=== PATIENT | female | born 1995 | race Caucasian/White ===

== ENCOUNTER 2021-08-19 09:29 | Emergency (ER) | payer SELFPAY ==
[2021-08-19 09:30] VITALS: BP 125/84; PULSE 83; RESP 16; TEMP 37; O2SAT 99; BMI 30.2
--- NOTE | 2021-08-19 09:45 | RAD_ITS ---
STUDY: X-RAY CHEST REASON FOR EXAM: Female, 26 years old. Cough TECHNIQUE: Single AP portable view of the chest. COMPARISON: None. FINDINGS: The lungs are clear and expanded. There is no demonstrated pleural abnormality. Normal size heart. Normal mediastinum and mikie. Normal visualized pulmonary arteries. Normal visualized aortic arch and descending thoracic aorta. Normal visualized thoracic spine. Normal visualized ribs, clavicles, and shoulders. There is no demonstrated abnormality of the visualized soft tissue structures of the upper abdomen. RAD/Chest 1 View IMPRESSION: Normal x-ray examination of the chest. Electronically Signed: Andrew Barraza MD at 10:12 EDT Tel , Service support ,
--- NOTE | 2021-08-19 10:31 | EX.ED.DYSGE1 ---
HPI History of Present Illness Chief Complaint: Headache Narrative Narrative: Patient is a 26-year-old female who reports 4 to 5 days of myalgias with congestion cough and headache. She denies any known sick exposures but states she is concerned with Covid based on the symptoms. Secondary to this she presents for evaluation [facility] Medical History Asthma Home Medications hydrocodone-homatropine [Hycodan] 5 ml PO Q6H PRN 7 Days #140 ml 08/19/21 [Rx Last Taken Unknown] prednisone 40 mg PO DAILY #14 tab 08/19/21 [Rx Last Taken Unknown] Allergy/AdvReac Type Severity Reaction Status Date / Time No Known Allergies Allergy Verified 08/19/21 09:32 Social History Smoking Status: Current some day smoker tobacco type: cigarettes ROS ROS ED Constitutional Constitutional ED: Reports chills, fever(s) and subjective ENT ENT ED: Reports rhinorrhea and sore throat Cardiovascular Cardiovascular: Denies chest pain Respiratory/Chest Respiratory/Chest: Reports cough and dyspnea Gastrointestinal Gastrointestinal: Reports nausea; Denies abdominal pain, diarrhea or vomiting Genitourinary Genitourinary ED: Denies dysuria Musculoskeletal Musculoskeletal: Reports myalgias Integumentary Denies rash Neurologic Neurologic: Reports headache(s) EXAM Physical Exam Const Vital Signs: 08/19/21 09:30 Temperature 98.6 F Temperature Source Temporal Pulse Rate 83 Respiratory Rate 16 Blood Pressure 125/84 H Blood Pressure Mean 97 Pulse Ox 99 Oxygen Delivery Method Room Air Positive well nourished and well developed General Appearance ED: well developed HEENT Reports moist mucous membranes HEENT Narrative: Cobblestoning the posterior pharynx consistent with sinus drainage but no airway edema or compromise. Right TM is retracted but no secondary changes to suggest otitis media Eyes PERRL and EOMs intact bilaterally Neck supple Neck Narrative: Positive anterior and posterior cervical lymphadenopathy noted. No meningeal signs Resp normal respiratory effort Resp Narrative: Breath sounds are diminished throughout with faint expiratory wheeze but no signs of respiratory distress Cardio regular rate and regular rhythm GI normal to inspection, nondistended, normoactive bowel sounds, non-tender, non-distended and no masses Auscultation: normoactive bowel sounds Palpation: soft Extremity normal to inspection Extremity Narrative: No asymmetric edema no pitting edema negative Homans' sign bilaterally Neuro oriented x3 and CN's II-XII intact bilaterally Neuro Narrative: Cranial nerves II through XII are grossly intact there are no focal neurologic deficits. No pronator drift no dysmetria no truncal ataxia. NIH stroke scale score of 0 Sensorium / Orientation: alert Motor Exam: strength 5/5 throughout Psych mental status grossly normal Skin no rashes or lesions noted MDM MDM MDM Narrative Medical decision making narrative: Patient presented to the ER with a normal neurologic exam and stable vitals and no signs of respiratory distress. Her constellation of symptoms is consistent with a viral illness and therefore Covid swab along with chest x-ray was ordered. Chest x-ray revealed no infiltrate and Covid test was negative. On reevaluation she remained resting comfortably with normal neurologic exam and no signs of distress. Therefore patient replaced on symptomatic medications and is safe for discharge. Lab Data Attestation: I reviewed the patient's lab results. Radiography Diagnostic Testing: Clinical Impression(s) from Imaging Studies Chest X-Ray 08/19/21 09:45 IMPRESSION: Normal x-ray examination of the chest. Electronically Signed: Andrew Barraza MD at 10:12 EDT Tel , Service support , Discharge Plan Triage Chief Complaint: Headache ED Provider: Eugenio Real Dx/Rx/DC Orders Clinical Impression: Viral respiratory illness Instructions: ED URI, Viral W/ Wheezing (Adult) Prescriptions: New prednisone 20 mg tablet 40 mg PO DAILY Qty: 14 RF: 0 hydrocodone-homatropine [Hycodan] 5-1.5 mg/5 mL (5 mL) syrup 5 ml PO Q6H PRN (Reason: cough) 7 Days Qty: 140 RF: 0 Primary Care Provider: Care Physician,No Primary Referrals: Selwyn Drummond MD [STAFF PHYSICIAN] - 3-5 Days if not improving Care Physician,No Primary [Primary Care Provider] - Disposition Disposition: Home, Self Care
[2021-08-19 10:46] VITALS: BP 108/53; PULSE 71; RESP 16; O2SAT 99
== END 2021-08-19 10:46 | disposition home or self-care (01) ==
PROVIDERS: Emergency Provider Emergency Medicine
DX: B34.9 Viral infection, unspecified (principal); R51.9 Headache, unspecified; Z20.822 Contact with and (suspected) exposure to COVID-19; M79.10 Myalgia, unspecified site; J45.909 Unspecified asthma, uncomplicated; F17.210 Nicotine dependence, cigarettes, uncomplicated
CPT/HCPCS: 71045; 87426; 99282

== ENCOUNTER 2021-10-20 08:47 | Emergency (ER) | payer SELFPAY ==
[2021-10-20 08:49] VITALS: BP 120/73; PULSE 85; RESP 16; TEMP 37.1; O2SAT 99; BMI 26.7
[2021-10-20] MEDS: Ondansetron ODT 4 MG Tablet 8 MG PO (09:12)
[2021-10-20] MEDS: Mag Hydrox/Al Hydrox/Simeth 30 ML UDC PO (09:20)
[2021-10-20] MEDS: Meclizine HCl 25 MG Tablet PO (09:20)
--- NOTE | 2021-10-20 09:35 | EX.ED.DYSGE1 ---
HPI History of Present Illness Chief Complaint: Dizziness Informant: patient Narrative Narrative: Healthy unvaccinated 26-year-old female presenting with cold symptoms for the past 2 or 3 days, and yesterday and this morning she has developed vertigo that feels like spinning, makes her nauseated, worse when she turns her head to the right, intermittent and goes away when she remains still. No headache. No earache, tinnitus, changes in her hearing, or ear pain. PFSH PFSH Medical History Asthma Home Medications meclizine 25 mg PO Q8H PRN PRN #20 tab 10/20/21 [Rx Last Taken Unknown] Allergy/AdvReac Type Severity Reaction Status Date / Time promethazine [From Phenergan] AdvReac NEEDS Verified 10/20/21 08:48 FOLLOW-UP Social History Smoking Status: Current some day smoker tobacco type: cigarettes ROS ROS ED Constitutional Constitutional ED: Denies chills or fever(s) ENT ENT ED: Reports nasal congestion, rhinorrhea and sore throat; Denies ear pain Cardiovascular Cardiovascular: Reports chest pain and other Details: Nonpleuritic upper substernal chest burning that started after nausea/vomiting this morning ; Denies palpitations Respiratory/Chest Respiratory/Chest: Denies dyspnea Gastrointestinal Gastrointestinal: Reports nausea and vomiting; Denies abdominal pain or diarrhea Genitourinary Genitourinary ED: Denies dysuria or hematuria Musculoskeletal Musculoskeletal: Denies myalgias or neck pain Integumentary Denies abscess or rash Neurologic Neurologic: Reports vertigo; Denies headache(s), paresthesias or weakness Psychiatric Psychiatric: Denies depression or suicidal thoughts Endocrine Endocrinology: Denies polydipsia or polyuria EXAM Physical Exam Const Vital Signs: 10/20/21 08:49 10/20/21 09:16 Temperature 98.7 F Temperature Source Temporal Pulse Rate 85 Respiratory Rate 16 Respiratory Effort Normal Non-Labored Respiratory Pattern Normal Blood Pressure 120/73 Blood Pressure Mean 88 Pulse Ox 99 Oxygen Delivery Method Room Air Positive well nourished and well developed General Appearance ED: well developed and NAD HEENT Reports EAC's normal, TM's clear, TM's normal bilaterally and moist mucous membranes normocephalic and atraumatic Tympanic Membrane ED: Yes TM's clear Throat: Negative for posterior oropharynx abnormal Eyes PERRL and EOMs intact bilaterally Neck no lymphadenopathy, supple and no meningeal signs Resp normal respiratory effort and clear to auscultation bilaterally Cardio no murmurs Rate: regular rate Rhythm: regular rhythm Neuro oriented x3, CN's II-XII intact bilaterally and no sensory deficits noted Neuro Narrative: Normal [id number] and [id number] bilaterally Sensorium / Orientation: alert Motor Exam: strength 5/5 throughout Skin Lesions: no lesions Rashes: no rashes MDM MDM MDM Narrative Medical decision making narrative: Rapid Covid is negative. She likely has peripheral vertigo from her right ear due to viral labyrinthitis. Supportive care advised follow-up if not improving or getting worse. Discharge Plan Triage Chief Complaint: Dizziness ED Provider: Michael Jacome Dx/Rx/DC Orders Clinical Impression: Peripheral vertigo involving right ear, Viral URI Instructions: ED Vertigo, Unspecified Prescriptions: New meclizine [meclizine] 25 MG tablet 25 mg PO Q8H PRN PRN (Reason: Dizziness) Qty: 20 RF: 0 Primary Care Provider: Care Physician,No Primary Referrals: Vanessa Washington [NON-STAFF] - 1 Week if not improving Care Physician,No Primary [Primary Care Provider] - Disposition Disposition: Home, Self Care
--- NOTE | 2021-10-20 11:36 | CM.ED ---
SW Note Referral Source: Case Find Referral Reason: NO PCP SW met with patient and she confirmed she has no PCP. Patient was provided with Healthcare Provider Directory from [facility]. No other SW needs voiced at this time. Plan: Provided with PCP resources Joyce LEON
[2021-10-20 11:54] VITALS: BP 124/67; PULSE 71; RESP 16; O2SAT 98
== END 2021-10-20 11:55 | disposition home or self-care (01) ==
PROVIDERS: Emergency Provider Emergency Medicine; Visit Provider Emergency Medicine
DX: H81.391 Other peripheral vertigo, right ear (principal); J06.9 Acute upper respiratory infection, unspecified; F17.210 Nicotine dependence, cigarettes, uncomplicated
CPT/HCPCS: 87426; 99283

== ENCOUNTER 2021-12-07 09:38 | Emergency (ER) | payer SELFPAY ==
[2021-12-07 09:39] VITALS: BP 111/70; PULSE 84; RESP 17; TEMP 36.8; O2SAT 96; BMI 25.9
[2021-12-07] MEDS: Ondansetron 4 MG/2 ML Vial IV (10:39)
[2021-12-07] MEDS: Morphine 4 MG/ML Syringe IV ×2 (10:39→11:47)
[2021-12-07] MEDS: 0.9% Normal Saline 1,000 ML 1000 ML IV (10:39)
[2021-12-07 10:50] LABS: Bacteria 0 SEEN /hpf (None Seen); Mucous, Urine 0 SEEN /hpf (<or=2+); Red Blood Cells-Urine 0 SEEN /hpf (0-5); White Blood Cells 0 SEEN /hpf (0-5)
[2021-12-07 10:51] LABS: Color, Urine Yellow (Yellow); Glucose, Dipstick Normal (Normal); Ketone-Dipstick Negative (Negative); Leukocyte Esterase-Dipstick Negative /ul (Negative); Nitrite-Dipstick Negative (Negative); Occult Blood-Urine Negative /ul (Negative); Protein-Dipstick Negative (Negative); Urine Bilirubin Dipstick Negative (Negative); Urine Clarity Clear (Clear); Urine Urobilinogen Normal (Normal)
[2021-12-07 10:52] LABS: Absolute Lymphocyte Count 1.85 X10^3/uL (0.83-4.51); Absolute Neutrophil Count 2.9 X10^3/uL (2.0-7.7); Basophil# 0.04 X10^3/uL; Basophil% 0.8 % (0-1); Eosinophil# 0.08 X10^3/uL; Eosinophils% 1.5 % (0-5); Hematocrit 35.7 % (37-47); Hemoglobin 11.6 g/dL (12.0-15.0); Lymphocyte # 1.85 X10^3/ul (0.83-4.51); Lymphocyte % 35.6 % (19-41); Mean Corp Hgb Conc 32.5 g/dL (32-36); Mean Corpuscular Hgb 26.2 pg (27.0-32.0); Mean Corpuscular Volume 80.6 fL (81-99); Mean Platelet Vol. 9.3 fl (6.2-12.0); Monocyte# 0.32 X10^3/uL; Monocyte% 6.2 % (0-10); NRBC Flagged by Analyzer 0 % (0-5); Neutrophil # 2.89 X10^3/uL (2.7-7.7); Neutrophil % 55.7 % (47-70); Platelet Count 302 K/mm3 (150-450); RBC Distribution Width CV 15.1 % (11.6-14.6); RBC Distribution Width SD 44.3 fl (35.1-43.9); Red Blood Count 4.43 M/mm3 (4.2-5.4); White Blood Count 5.2 K/mm3 (4.4-11.0)
--- NOTE | 2021-12-07 10:56 | CT_ITS ---
STUDY: CT ABDOMEN AND PELVIS WITH CONTRAST REASON FOR EXAM: Female, 26 years old. LUQ pain. 3 day history of nausea and vomiting. Patient has a pectus carinatum. RADIATION DOSAGE (If Supplied By Facility): CTDIvol = ( 10.79 ) mGy, DLP = ( 394.07 ) mGycm TECHNIQUE: Transaxial images were obtained from the dome of the diaphragm to the symphysis pubis without oral contrast. IV 100mL Isovue-300 was administered. Sagittal and coronal images were reconstructed. Individualized dose optimization techniques were used for this CT. COMPARISON: None. FINDINGS: The visualized lung bases are unremarkable. The visualized portions of the heart are within normal limits. 5 mm cyst in the dome of the right lobe of the liver. Normal gallbladder and extrahepatic biliary system. Normal spleen. Normal pancreas. Normal bilateral adrenal glands. Normal right kidney. Normal left kidney. Normal visualized stomach. Normal small intestine. Normal colon. The appendix is visualized and appears normal. Normal abdominal aorta. Normal inferior vena cava. Normal retroperitoneum. Distended urinary bladder. Tubal ligation clips are seen in the pelvis. Small amount of free fluid in the cul-de-sac. There is a 1.5 cm x 1.2 cm dominant follicle in the left ovary. Normal abdominal wall. Normal osseous structures. CT/Abdomen/Pelvis W IV Cont ONLY IMPRESSION: Small amount of free fluid is seen in the cul-de-sac. Dominant follicle seen in the left ovary. Tubal ligation clips are seen in the pelvis. Electronically Signed: Ayush Cazares MD at 12:59 EST ,
--- NOTE | 2021-12-07 11:00 | EDS_ITS ---
HPI HPI - GI History of Present Illness Chief Complaint: Abd Pain Narrative Narrative: 26-year-old female presenting with left upper quadrant pain. She states that has had this for a few days. He states that it is sharp and sometimes radiates posteriorly to the left flank. She does have history of kidney stones but states this felt different. She has not had any urinary complaints. She admits to nausea without vomiting and episodes of bloating and diarrhea. She denies black or bloody stools. She is not had fever or chills. She is not anything atypical for herself. She is not had any travel. She has no history of Crohn's disease or ulcerative colitis. She is not concerned for . [facility] Medical History Asthma Home Medications NK 12/07/21 [History Last Taken Unknown] Allergy/AdvReac Type Severity Reaction Status Date / Time promethazine [From Phenergan] AdvReac NEEDS Verified 12/07/21 09:38 FOLLOW-UP Surgical History History of 2 sections Social History Smoking Status: Current some day smoker tobacco type: cigarettes ROS ROS ED Constitutional Constitutional ED: Denies chills or fever(s) ENT ENT ED: Denies rhinorrhea or sore throat Cardiovascular Cardiovascular: Denies chest pain or palpitations Respiratory/Chest Respiratory/Chest: Denies cough or dyspnea Gastrointestinal Gastrointestinal: Reports abdominal pain, nausea and vomiting Genitourinary Genitourinary ED: Denies dysuria or hematuria Musculoskeletal Musculoskeletal: Denies arthralgias or myalgias Integumentary Denies abscess or rash Neurologic Neurologic: Denies headache(s) or weakness EXAM Physical Exam Const Vital Signs: 12/07/21 09:39 12/07/21 11:55 Temperature 98.2 F Temperature Source Temporal Pulse Rate 84 61 Respiratory Rate 17 14 Blood Pressure 111/70 103/75 Blood Pressure Mean 83 84 Pulse Ox 96 100 Oxygen Delivery Method Room Air Room Air Positive well nourished General Appearance ED: NAD; Negative for pallor HEENT Reports moist mucous membranes normocephalic and atraumatic Eyes PERRL and EOMs intact bilaterally Neck no lymphadenopathy and supple Resp normal respiratory effort and clear to auscultation bilaterally Cardio regular rate and regular rhythm GI Palpation: soft and tender LUQ Back/Spine General Back: CVA tenderness right Neuro Sensorium / Orientation: alert, oriented to person, oriented to place and oriented to time Psych mental status grossly normal and thought process normal Skin General Skin Exam: Negative for jaundice or pallor MDM MDM MDM Narrative Medical decision making narrative: 26-year-old female presenting with left upper quadrant abdominal pain. She states he has nausea without vomiting. She does express that she has had some gas and bloating with diarrhea. She does appear to have some CVA tenderness on the left as well. I did check a urinalysis there is no evidence of occult blood or caity hematuria. There is no evidence of infection. CBC shows no leukocytosis and her hemoglobin is stable at 11.6. Platelets are normal at 302. Renal function and electrolytes are normal. LFTs are normal. Lipase is negative. Patient continued to have pain after initially getting 4 mg of morphine and she was given a repeat dose. CT of the abdomen pelvis with IV contrast shows a dominant follicle on the left ovary. There are some fluid in the cul-de-sac. I interpreted this to likely be a ruptured ovarian cyst. I do not believe she has an ultrasound. Patient was given prescription for Naprosyn and Zofran for home. She is given return precautions. Impression: 1. Ruptured ovarian cyst Lab Data Attestation: I reviewed the patient's lab results. Labs: Laboratory Results - last 24 hr 12/07/21 12/07/21 12/07/21 09:48 09:48 09:48 WBC 5.2 RBC 4.43 Hgb 11.6 L Hct 35.7 L MCV 80.6 L MCH 26.2 L MCHC 32.5 RDW Std Deviation 44.3 H RDW Coeff of [place] 15.1 H Plt Count 302 MPV 9.3 Immature Gran % (Auto) 0.200 Neut % (Auto) 55.7 Lymph % (Auto) 35.6 [place] % (Auto) 6.2 Eos % (Auto) 1.5 Baso % (Auto) 0.8 Absolute Neuts (auto) 2.9 Absolute Lymphs (auto) 1.85 Nucleated RBC % 0 Sodium 136 Potassium 4.1 Chloride 105 Carbon Dioxide 28.0 Anion Gap 3 L BUN 9 Creatinine 0.84 Estim Creat Clear Calc 72.26 Est GFR (MDRD) Af Amer 104 Est GFR (MDRD) Non-Af 86 BUN/Creatinine Ratio 10.7 Glucose 82 Calcium 8.9 Total Bilirubin 0.60 AST 17 ALT 17 Alkaline Phosphatase 41 L Total Protein 8.0 Albumin 3.9 Globulin 4.1 Albumin/Globulin Ratio 1.0 Lipase 117 Serum , Qual NEGATIVE Urine Color Urine Clarity Urine pH Ur Specific [place] Urine Protein Urine Glucose (UA) Urine Ketones Urine Occult Blood Urine Nitrite Urine Bilirubin Urine Urobilinogen Ur Leukocyte Esterase Urine RBC Urine WBC Ur Squamous Epith Cells Urine Bacteria Urine Mucus 12/07/21 10:35 WBC RBC Hgb Hct MCV MCH MCHC RDW Std Deviation RDW Coeff of [place] Plt Count MPV Immature Gran % (Auto) Neut % (Auto) Lymph % (Auto) [place] % (Auto) Eos % (Auto) Baso % (Auto) Absolute Neuts (auto) Absolute Lymphs (auto) Nucleated RBC % Sodium Potassium Chloride Carbon Dioxide Anion Gap BUN Creatinine Estim Creat Clear Calc Est GFR (MDRD) Af Amer Est GFR (MDRD) Non-Af BUN/Creatinine Ratio Glucose Calcium Total Bilirubin AST ALT Alkaline Phosphatase Total Protein Albumin Globulin Albumin/Globulin Ratio Lipase Serum , Qual Urine Color Yellow Urine Clarity Clear Urine pH 7.0 Ur Specific [place] 1.010 Urine Protein Negative Urine Glucose (UA) Normal Urine Ketones Negative Urine Occult Blood Negative Urine Nitrite Negative Urine Bilirubin Negative Urine Urobilinogen Normal Ur Leukocyte Esterase Negative Urine RBC 0 SEEN Urine WBC 0 SEEN Ur Squamous Epith Cells 0-5 SEEN Urine Bacteria 0 SEEN Urine Mucus 0 SEEN Radiography Diagnostic Testing: Clinical Impression(s) from Imaging Studies Abdomen/Pelvis CT 12/07/21 10:56 IMPRESSION: Small amount of free fluid is seen in the cul-de-sac. Dominant follicle seen in the left ovary. Tubal ligation clips are seen in the pelvis. Electronically Signed: Ayush Cazares MD at 12:59 EST , Discharge Plan Triage Chief Complaint: Abd Pain ED Provider: Sebastian Medeiros Dx/Rx/DC Orders Instructions: Treating a Ruptured Ovarian Cyst Prescriptions: No Action NK RF: 0 Primary Care Provider: Care Physician,No Primary Referrals: Care Physician,No Primary [Primary Care Provider] - Disposition Disposition: Home, Self Care
[2021-12-07 11:01] LABS: Squamous Epithelial Cells - UA 0-5 SEEN /hpf (5-10)
[2021-12-07 11:02] LABS: Internal QC Validated? YES +Cl - CLEAR BKGD; Pregnancy, Serum, hCG Quali. NEGATIVE Negative
[2021-12-07 11:19] LABS: AST(SGOT) 17 U/L (15-37); Alanine Aminotransfer ALT/SGPT 17 U/L (13-56); Albumin, Serum 3.9 g/dL (3.2-5.0); Alkaline Phosphatase 41 U/L (45-117); Anion Gap 3 (5-15); BUN 9 mg/dL (7-18); BUN/Creat Ratio 10.7 RATIO (10-20); Calcium,Total 8.9 mg/dL (8.5-10.1); Chloride 105 mmol/L (98-107); Creatinine, Serum 0.84 mg/dL (0.55-1.02); EST Glomerular Filtration Rate 86 mL/min (>60); Est Glom Filt Rate - Afr Amer 104 mL/min (>60); Estimated Creatinine Clearance 72.26 ml/min; Globulin 4.1 g/dL (2.2-4.2); Glucose 82 mg/dL (74-106); Lipase 117 U/L (73-393); Potassium 4.1 mmol/L (3.5-5.1); Sodium Level 136 mmol/L (136-145)
[2021-12-07 11:55] VITALS: BP 103/75; PULSE 61; RESP 14; O2SAT 100
== END 2021-12-07 13:35 | disposition home or self-care (01) ==
PROVIDERS: Emergency Provider Student in an Organized Health Care Education/Training Program; Visit Provider Student in an Organized Health Care Education/Training Program
DX: N83.202 Unspecified ovarian cyst, left side (principal); R10.12 Left upper quadrant pain; R11.0 Nausea; J45.909 Unspecified asthma, uncomplicated; F17.210 Nicotine dependence, cigarettes, uncomplicated; Z87.442 Personal history of urinary calculi
CPT/HCPCS: 74177; 80053; 81001; 83690; 84703; 85025; 96361; 96374; 96375; 96376; 99283; J7030; Q9967; A4216; J2405

== ENCOUNTER 2022-01-13 09:58 | Emergency (ER) | payer SELFPAY ==
[2022-01-13 09:59] VITALS: BP 104/68; PULSE 87; RESP 17; TEMP 36.1; O2SAT 97; BMI 25.9
--- NOTE | 2022-01-13 10:25 | EX.ED.DYSGE1 ---
HPI History of Present Illness Chief Complaint: Headache Informant: patient Narrative Narrative: 26-year-old female presenting with headache. She states she has a gradual onset headache which started yesterday. She has tried Excedrin Migraine at home. She complains of nausea and vomiting. Denies fever. Complains of diffuse headache. Denies neck pain. Denies trauma. Prior similar symptoms: Yes Recent Illness/Hospitalization: No PFSH PFSH Medical History Asthma Home Medications NK 01/13/22 [History Last Taken Unknown] Allergy/AdvReac Type Severity Reaction Status Date / Time promethazine [From Phenergan] AdvReac NEEDS Verified 01/13/22 09:59 FOLLOW-UP Surgical History History of 2 sections Social History Smoking Status: Current some day smoker tobacco type: cigarettes ROS ROS ED Constitutional Constitutional ED: Denies fever(s) Eyes Eyes: Denies change in vision ENT ENT ED: Denies rhinorrhea or sore throat Cardiovascular Cardiovascular: Denies chest pain or palpitations Respiratory/Chest Respiratory/Chest: Denies cough or dyspnea Gastrointestinal Gastrointestinal: Denies abdominal pain, diarrhea, nausea or vomiting Genitourinary Genitourinary ED: Denies dysuria Musculoskeletal Musculoskeletal: Denies myalgias Integumentary Denies rash Neurologic Neurologic: Reports headache(s) Psychiatric Psychiatric: Denies suicidal thoughts EXAM Physical Exam Const Vital Signs: 01/13/22 09:59 Temperature 97.0 F L Temperature Source Temporal Pulse Rate 87 Respiratory Rate 17 Blood Pressure 104/68 Blood Pressure Mean 80 Pulse Ox 97 Oxygen Delivery Method Room Air Positive well nourished and well developed General Appearance ED: well developed HEENT Reports normocephalic and head/scalp atraumatic Eyes PERRL and EOMs intact bilaterally Neck supple Neck Narrative: No meningismus General: Negative for tenderness Chest Wall inspection of chest normal Resp normal respiratory effort and clear to auscultation bilaterally Cardio regular rate and regular rhythm GI non-tender and non-distended Palpation: soft; Negative for guarding or rebound tenderness present no CVA tenderness Extremity normal to inspection Neuro oriented x3 Sensorium / Orientation: alert Psych mental status grossly normal MDM MDM MDM Narrative Medical decision making narrative: Patient was given Reglan, Benadryl, IV fluids with some improvement. She was given Toradol IV with additional improvement. She feels comfortable with discharge home. Advised to follow-up with primary care physician. Advised return to ED for worsening complaints. Discharge Plan Triage Chief Complaint: Headache ED Provider: Nelia Sood Dx/Rx/DC Orders Clinical Impression: Headache Instructions: ED Headache Unspecified Prescriptions: No Action NK RF: 0 Primary Care Provider: Care Physician,No Primary Referrals: Bassem Motley MD [NON-STAFF] - Care Physician,No Primary [Primary Care Provider] - Disposition Disposition: Home, Self Care
[2022-01-13] MEDS: 0.9% Normal Saline 1,000 ML 999 ML IV (10:49)
[2022-01-13] MEDS: Metoclopramide 10 MG/2 ML Vial 5 MG IV (10:49)
[2022-01-13] MEDS: DiphenhydrAMINE 50 MG/ML Syringe 25 MG IV (10:50)
[2022-01-13] MEDS: Ketorolac 30 MG/ML Syringe IV (12:29)
[2022-01-13 12:59] VITALS: BP 108/64; PULSE 72; RESP 16; O2SAT 99
== END 2022-01-13 13:00 | disposition home or self-care (01) ==
PROVIDERS: Emergency Provider Emergency Medicine; Visit Provider Emergency Medicine
DX: R51.9 Headache, unspecified (principal); R11.2 Nausea with vomiting, unspecified; F17.210 Nicotine dependence, cigarettes, uncomplicated
CPT/HCPCS: 96361; 96374; 96375; 99283; J7030

== ENCOUNTER 2022-08-28 10:57 | Emergency (ER) | payer SELFPAY ==
[2022-08-28 10:57] VITALS: BP 129/76; PULSE 100; RESP 16; TEMP 37.6; O2SAT 100; BMI 27.3
--- NOTE | 2022-08-28 11:34 | EX.ED.DYSGE1 ---
HPI History of Present Illness Chief Complaint: Nausea/Vomiting Informant: patient Onset/Context/Timing Onset: Yesterday Context: Gradual Onset Timing: Continuous Quality: Aching Location: Generalized Worsened by: Nothing Relieved by: Nothing Narrative Narrative: Patient presents with nausea, vomiting, and generalized aches that began yesterday. Patient states it is getting progressively worse. Patient states nothing makes it better nothing makes it worse. Patient admits to subjective fevers at home but did not take her temperature. Patient admits to a sore throat and rhinorrhea. Patient admits to a mild cough. Patient admits to some nausea and vomiting. Patient admits to a headache. [facility] Medical History Asthma Home Medications NK 01/13/22 [History Last Taken Unknown] Allergy/AdvReac Type Severity Reaction Status Date / Time promethazine [From Phenergan] AdvReac NEEDS Verified 08/28/22 11:00 FOLLOW-UP Surgical History History of 2 sections Social History Smoking Status: Current some day smoker tobacco type: cigarettes ROS ROS ED Constitutional Constitutional ED: Reports fever(s) and subjective; Denies chills Eyes Eyes: Denies blurry vision or change in vision ENT ENT ED: Reports rhinorrhea and sore throat Cardiovascular Cardiovascular: Denies chest pain or palpitations Respiratory/Chest Respiratory/Chest: Reports cough; Denies dyspnea Gastrointestinal Gastrointestinal: Reports nausea and vomiting Genitourinary Genitourinary ED: Denies dysuria or hematuria Musculoskeletal Musculoskeletal: Reports back pain and myalgias Integumentary Denies abscess or rash Neurologic Neurologic: Reports headache(s); Denies weakness Allergic/Immunologic Allergic/Immunologic ED: Denies mouth swelling or urticaria EXAM Physical Exam Const Vital Signs: 08/28/22 10:57 Temperature 99.7 F H Temperature Source Temporal Pulse Rate 100 Respiratory Rate 16 Blood Pressure 129/76 H Blood Pressure Mean 93 Pulse Ox 100 Oxygen Delivery Method Room Air Positive well nourished and well developed General Appearance ED: well developed HEENT Reports moist mucous membranes HEENT Narrative: Oropharynx showed some mild postnasal drainage. There is mild erythema. There are no exudates. Eyes PERRL and EOMs intact bilaterally Neck supple and no JVD Resp normal respiratory effort and clear to auscultation bilaterally Cardio regular rate, regular rhythm and no murmurs GI normal to inspection, nondistended, normoactive bowel sounds and non-tender Palpation: soft Extremity normal to inspection General Extremety ED: Negative for edema or tenderness General Extremity: Negative for edema Neuro oriented x3, CN's II-XII intact bilaterally and no sensory deficits noted Sensorium / Orientation: alert Motor Exam: strength 5/5 throughout Psych mental status grossly normal Skin no rashes or lesions noted MDM MDM MDM Narrative Medical decision making narrative: Patient was given IV fluids, Zofran, and Tylenol. PA and lateral chest x-ray was obtained. There are 2 views. On my interpretation, lung fernandez are clear. There is normal cardiac silhouette. Bony thorax is normal. There is no acute process noted. Radiologist also interpreted the x-ray and agrees. COVID-19 rapid antigen was obtained and was positive. Influenza A and influenza B antigens were obtained and were negative. Patient was advised of her findings. Patient was instructed to take Tylenol or ibuprofen as needed for any aches or fevers. Patient was instructed drink plenty of fluids. Patient was instructed to quarantine for the next 5 days. Patient was instructed to follow-up with her primary care physician in 5 to 7 days. Patient understood and was agreeable with the plan. All questions were answered. Radiography Diagnostic Testing: Clinical Impression(s) from Imaging Studies Chest X-Ray 08/28/22 12:10 IMPRESSION: No acute cardiopulmonary process identified. Electronically Signed: Charity Reynolds MD at 12:18 EST , Discharge Plan Triage Chief Complaint: Nausea/Vomiting ED Provider: Garfield Barksdale Dx/Rx/DC Orders Clinical Impression: COVID-19 Instructions: Coronavirus Disease 2019 (COVID-19): Overview Prescriptions: No Action NK Stand Alone Forms: ED Work / School Excuse Primary Care Provider: Care Physician,No Primary Referrals: Vanessa Washington [Non-Staff] - 5-7 Days Care Physician,No Primary [Primary Care Provider] - Disposition Disposition: Home, Self Care
[2022-08-28] MEDS: 0.9% Normal Saline 1,000 ML 1000 ML IV (11:53)
[2022-08-28] MEDS: Ondansetron 4 MG/2 ML Vial IV ×2 (12:07→13:01)
--- NOTE | 2022-08-28 12:10 | RAD_ITS ---
HISTORY: Cough. TECHNIQUE: XR Chest 2 Views. COMPARISON: 08/19/2021. FINDINGS: CARDIOMEDIASTINAL BORDERS: Cardiac silhouette within normal limits in size. Mediastinal contour unremarkable. LUNGS: Radiographically clear. PLEURA: No pleural effusion or pneumothorax seen. OSSEOUS STRUCTURES: Unremarkable. RAD/Chest PA and Lateral IMPRESSION: No acute cardiopulmonary process identified. Electronically Signed: Charity Reynolds MD at 12:18 EST ,
[2022-08-28] MEDS: Acetaminophen 500 MG Tablet 1000 MG PO (12:21)
== END 2022-08-28 13:37 | disposition home or self-care (01) ==
PROVIDERS: Emergency Provider Emergency Medicine; Visit Provider Emergency Medicine
DX: U07.1 COVID-19 (principal); R11.2 Nausea with vomiting, unspecified; F17.210 Nicotine dependence, cigarettes, uncomplicated
CPT/HCPCS: 71046; 87428; 96361; 96374; 96376; 99284; J7030; J2405

== ENCOUNTER 2023-03-22 09:17 | Emergency (ER) | payer SELFPAY ==
[2023-03-22 09:17] VITALS: BP 99/71; PULSE 87; RESP 18; TEMP 36; O2SAT 100; BMI 26.4
--- NOTE | 2023-03-22 09:23 | EX.ED.DYSGE1 ---
HPI History of Present Illness Chief Complaint: Flank Pain [facility] Medical History Asthma Home Medications NK 01/13/22 [History Last Taken Unknown] Allergy/AdvReac Type Severity Reaction Status Date / Time promethazine [From Phenergan] AdvReac NEEDS Verified 03/22/23 09:17 FOLLOW-UP Surgical History History of 2 sections Social History Smoking Status: Current some day smoker tobacco type: cigarettes EXAM Physical Exam Const Vital Signs: 03/22/23 09:17 Temperature 96.8 F L Temperature Source Temporal Pulse Rate 87 Respiratory Rate 18 Blood Pressure 99/71 Blood Pressure Mean 80 Pulse Ox 100 Oxygen Delivery Method Room Air MDM MDM MDM Narrative Medical decision making narrative: HISTORY OF PRESENT ILLNESS: 27-year-old female here with flank pain. The patient states she developed left-sided flank pain that is sharp worse with a deep breath 2 days ago. She denies any falls or trauma states she was out walking at [place] and did not notice any specific injury. She states the pain does not radiate to her groin it is not associated with urination or fever. She states that history of kidney stones and this does not feel like her prior kidney stone. She denies any cough fever. She denies any chest pain or shortness of breath. She states when she takes a deep breath it feels heavy in her left flank area low back area. Patient denies any saddle anesthesia, urinary tension, bowel or bladder incontinence, lower extremity weakness, fever or IV drug use, no recent spinal manipulation or surgery, no recent urinary catheterization. The patient denies recent surgery in the last 4 weeks or immobilization in the last 3 days, denies previous diagnosis of DVT or PE, hemoptysis, unilateral leg swelling or malignancy with treatment the last 6 months. No estrogen use noted. She denies any bleeding diathesis. Denies any volume loss such as vomiting or diarrhea. She denies any frequency urgency or changes to her urinary habits. REVIEW OF SYSTEMS: Pertinent positives: Flank pain, nausea Pertinent negatives: Syncope, chest pain, loss of sensation, loss of PHYSICAL EXAM: Nursing triage notes reviewed, Vital signs reviewed Constitutional: please see mdm HENT: MMM Eyes: Pupils equal round and reactive to light, Extraocular muscles intact Neck: No stridor, no JVD, full neck ROM Lungs: Clear to auscultation, No wheezing or rales. No increased work of breathing, no conversational dyspnea, no accessory muscle use, no nasal flaring. No respiratory distress noted Heart: Regular rate and rhythm, No murmurs, No rubs and No gallops, 2+ distal pulses (radial, femoral, posterior tibial) in all extremities Abdomen: Soft, there is no tenderness, rigidity, rebound or guarding, no obvious peritoneal signs, no palpable pulsatile abdominal masses, no auscultated abdominal bruit : No CVAT Back: Hypertonicity, TTP over left lateral lumbar paraspinal muscles. No step-offs or deformities noted to T or L-spine. Extremities: No edema, no calf tenderness no stigmata of VTE Neuro: No focal neurological deficits, cranial nerves II through XII intact, 5/5 strength in all extremities. Intact sensation to light touch in all extremities, 2+ reflexes bilateral patella tendons. Normal gait. No ataxia. Intact sensation L1-S1 dermatomal distributions. Intact 5/5 strength in hip flexion (T12-L3). Knee extension (L2-L4). Ankle dorsiflexion (L4-L5). Ankle plantar flexion (S1). Great toe extension (L5). 2+ patellar and Achilles DTRs. Skin: No rash or lesions noted MEDICAL DECISION MAKING: Chief Complaint: Flank pain, nausea External records reviewed: CT scan of the abdomen pelvis was obtained in November 2021 for left lower quadrant abdominal pain nausea and vomiting. CT scan at that time showed no evidence of kidney stones or other acute intra-abdominal pathology Factors affecting care: History of 2 section, asthma Social determinants of health:Current smoker History obtained from others: None Consults: None ALL IMAGES HAVE BEEN PERSONALLY REVIEWED AND INTERPRETED BY MYSELF. [facility] Narrative: Patient was hemodynamically stable, afebrile, nontoxic-appearing. She had soft systolic blood pressure however prior blood pressure studies show her blood pressure typically runs in the low 100s for example blood pressure from May 19, 2016 was 104/62. I considered the following differential diagnosis: Nephrolithiasis, pyelonephritis, , UTI, musculoskeletal pain, pneumonia, PE I considered PE given exacerbation of symptoms with a deep breath however the patient is PERC negative, has a low risk Wells score and as such have a low suspicion for VTE at this time. She had no chest pain or shortness of breath to suggest ACS. Pain did not radiate to the groin she had no urinary complaints to suggest nephrolithiasis or pyelonephritis. She had no cough fever hypoxia to suggest pneumonia. There is no indication for advanced imaging of the chest or abdomen or pelvis at this time. I was more concerned by musculoskeletal back pain. The patient had no back pain red flags to suggest a space-occupying lesion in the spine or cauda equina. She had no trauma to suggest fracture dislocation. The patient symptomatic treatment here. I obtained a urine and urinalysis to rule out and UTI. Urine will also be helpful and determine the patient has any evidence of inflammation or hematuria that suggest nephrolithiasis. UA was remarkable for no evidence of hematuria or UTI. Patient is likely suffering from musculoskeletal back pain and as such she is appropriate discharge home with outpatient pain control instructions and PCP follow-up. The patient presented complaining of back pain. There was no history of recent fall or trauma. There was no evidence to support genitourinary etiology. There is also no evidence to suggest vascular pathology such as AAA dissection. No fevers or other evidence to suspect infectious processes, abscess, osteomyelitis etc. The patient?s neurological exam is normal with normal motor and sensory. There is no saddle paresthesias reported and no bowel or bladder incontinence or retention. I suspect the pain is mechanical in nature. Clinical suspicion, plan of care and management was discussed with the patient. The patient was instructed to follow up with their health care provider. The patient was also instructed to return if the pain worsened, changed, or developed weakness or bowel or bladder trouble. The patient agreed with plan. I completed a structured, evidence-based clinical evaluation to screen for acute non-traumatic spinal emergencies. The patient has a normal detailed neurologic exam and red flag historical factors were negative. The evidence indicates that the patient is very low risk for an acute spinal emergency and this is consistent with my clinical intuition. The risk of further workup is higher than the likelihood of the patient having a spinal epidural abscess or other dangerous emergency spinal condition. It is, therefore, in the patient?s best interest not to do additional emergent testing at this time. Shared Decision-Making I have discussed with the patient my clinical impression and the result of an evidence-based clinical evaluation to screen for spinal epidural abscess and other spinal emergencies, as well as the risk of further testing and hospitalization. The evidence shows that the risk for an acute spinal emergency is less than 1%. Although the risk of an acute spinal emergency has not been completely eliminated, the risks of further testing likely exceed any potential benefit, and the patient agrees with not pursuing further emergent evaluation for causes of back pain at this time. The patient and/or family, caregivers express understanding. The patient and/or family, caregivers agrees with the plan. Total critical care time today provided was at least 0 minutes. This excludes separately billable procedures. Critical care time if documented is secondary to the patient having high probability of clinically significant/life threatening deterioration in the patient's condition which required my urgent intervention. Lab Data Labs: Laboratory Results - last 24 hr 03/22/23 09:40 Urine Color Yellow Urine Clarity Sl. Cloudy Urine pH 8.0 Ur Specific [place] 1.015 Urine Protein Negative Urine Glucose (UA) Normal Urine Ketones Negative Urine Occult Blood 10 H Urine Nitrite Negative Urine Bilirubin Negative Urine Urobilinogen Normal Ur Leukocyte Esterase Negative Urine RBC 0-5 SEEN Urine WBC 0 SEEN Ur Squamous Epith Cells 0-5 SEEN Urine Bacteria 1+ Urine Mucus 0 SEEN Urine Test Negative Discharge Plan Triage Chief Complaint: Flank Pain ED Provider: Kevin Turner Dx/Rx/DC Orders Clinical Impression: Musculoskeletal back pain Instructions: ED Back Pain (Acute or Chronic) Prescriptions: No Action NK Stand Alone Forms: ED Work / School Excuse Primary Care Provider: Care Physician,No Primary Referrals: Sulma Yee MD [Med Staff - Nursing Center Tutor] - Activity Restrictions/Additional Instructions: Thank you for trusting us with your care today! Please take Tylenol (2 pills, 650 mg), ibuprofen (2 pills, 400 mg) every 6 hours as needed for pain and fever control. Please return to the emergency department if your symptoms change or worsen. Specifically if develop urinary retention, bowel or bladder incontinence, loss of sensation around your private area, loss of movement or sensation in your legs. Additionally if you lose consciousness, develop chest pain, shortness of breath, cough, if you develop unilateral leg swelling. Please follow with your primary care physician for further outpatient evaluation and management. Disposition Disposition: Home, Self Care Discharge Date/Time: 03/22/23 10:44
[2023-03-22] MEDS: Acetaminophen 325 MG Tablet 650 MG PO (09:46)
[2023-03-22] MEDS: dexAMETHasone 4 MG Tablet PO (09:47)
[2023-03-22 09:55] LABS: Mucous, Urine 0 SEEN /hpf (<or=2+); White Blood Cells 0 SEEN /hpf (0-5)
[2023-03-22 10:14] LABS: Color, Urine Yellow (Yellow); Glucose, Dipstick Normal (Normal); Ketone-Dipstick Negative (Negative); Leukocyte Esterase-Dipstick Negative /ul (Negative); Nitrite-Dipstick Negative (Negative); Occult Blood-Urine 10 /ul (Negative); Protein-Dipstick Negative (Negative); Specific Gravity, Urine 1.015 (1.002-1.030); Urine Bilirubin Dipstick Negative (Negative); Urine Clarity Sl. Cloudy (Clear); Urine Urobilinogen Normal (Normal)
[2023-03-22 10:25] LABS: Bacteria 1+ /hpf (None Seen); Red Blood Cells-Urine 0-5 SEEN /hpf (0-5); Squamous Epithelial Cells - UA 0-5 SEEN /hpf (5-10)
[2023-03-22 10:26] LABS: Internal QC Validated? YES +Cl - CLEAR BKGD; Pregnancy, Urine Negative Negative
== END 2023-03-22 10:44 | disposition home or self-care (01) ==
PROVIDERS: Emergency Provider Emergency Medicine; Visit Provider Emergency Medicine
DX: M54.9 Dorsalgia, unspecified (principal); J45.909 Unspecified asthma, uncomplicated; F17.210 Nicotine dependence, cigarettes, uncomplicated
CPT/HCPCS: 81001; 81025; 99283